=== PATIENT | female | born 1990 | race Caucasian/White ===

== ENCOUNTER 2017-11-21 11:26 | Emergency (ER) | payer MEDICAID ==
[~2017-11-21] VITALS: Ht 165.1 cm; Wt 64.9 kg
[2017-11-21 11:29] VITALS: BP_SYST 137
[2017-11-21 12:31] VITALS: BP_SYST 137
== END 2017-11-21 12:30 | disposition home or self-care (01) ==
LOC: SED 11:26
DX: R07.89 Other chest pain (principal); M25.512 Pain in left shoulder
CPT/HCPCS: 71045; 81025; 93005; 99284